=== PATIENT | male | born 1975 | race Caucasian/White ===

== ENCOUNTER 2020-10-30 15:54 | Emergency (ER) | payer OTHER ==
[2020-10-30 16:19] LABS: Absolute Neutrophil Ct (ANC) 7.06 (1.4-6.9); BASOPHIL % 0.2 % (0.0-0.4); Basophil (Absolute #) 0.02 (0-0.4); Eosinophil (Absolute #) 0.19 (0-0.5); Hematocrit 47.8 % (42-50); Hemoglobin 15.7 gm/dl (12.5-18.0); Lymphocyte (Absolute #) 1.56 (1.0-4.6); Lymphocytes % 16.3 % (24.0-44.0); Mean Corpuscular Hemoglobin 26.9 pg (26-32); Mean Corpuscular Hgb Concent. 32.8 g/dl (32-36); Mean Platelet Volume 9.8 fl (7.5-11.0); Monocyte (Absolute #) 0.77 (0.0-1.3); Neutrophil % 73.5 % (36.0-66.0); Platelet Count 242 K/mm3 (150-450); Red Blood Count 5.83 M/mm3 (4.1-5.6); Red Cell Distribution Width 13.4 % (11.5-14.0); White Blood Count 9.6 K/mm3 (4.0-10.5)
[2020-10-30 16:30] LABS: ALBUMIN 4.2 g/dL (3.5-5.0); ALKALINE PHOSPHATASE 129 U/L (38-126); ANION GAP 15.3 MEQ/L (5-15); BLOOD UREA NITROGEN 20 mg/dL (9-20); CHLORIDE 97 mmol/L (98-107); Calcium 9.5 mg/dL (8.4-10.2); Carbon Dioxide 23 mmol/L (22-30); Creatinine 1 1.09 mg/dL (0.66-1.25); EST GLOMERULAR FILTRATION RATE > 60.0 ML/MIN; Glucose 297 mg/dL (74-106); MAGNESIUM 1.8 mg/dL (1.6-2.3); Potassium 3.7 mmol/L (3.5-5.1); SGOT/AST 25 U/L (17-59); SGPT/ALT 26 U/L (0-50); SODIUM 131 mmol/L (137-145); Total Protein 7.6 g/dL (6.3-8.2)
--- NOTE | 2020-10-30 16:37 | XRAY ---
Indication: Chest and left arm pain. Short of breath. Comparison: None Portable apical lordotic chest demonstrates small patchy right suprahilar infiltrate versus atelectasis. Remaining heart, lungs, and bony thorax unremarkable.
--- NOTE | 2020-10-30 17:04 | ERPHSYRPT ---
- History of Present Illness Time Seen by Provider: 10/30/20 16:10 Historian: patient Exam Limitations: no limitations Patient Subjective Stated Complaint: chest pain Triage Nursing Assessment: pt to ED c/o CP and SOB x 3 days. states he has had an episode of this 3 weeks ago while shoveling snow. pt states he was working and exerting himself and pain came back. rates 10/10 at worst. pt denies pain currently because he is at rest. heart sounds clear, lungs clear and equal bilaterally. Physician History: Patient is a 45-year-old male presents to our emergency department with complaints of chest pain. Symptoms started approximately 3 weeks ago. Chest pain has been intermittent. Patient states pain occurs with exertion. Patient states the pain has been more constant over the past 3 days however continues to be exacerbated with exertion. Pain rated 10 out of 10. Pain tends to radiate to his left arm. No associated nausea vomiting or diaphoresis. Symptoms are mild to moderate in intensity. Symptoms are progressive. Patient voices no other complaints or concerns at this time. Patient voices he is a former smoker. Patient states "I smoked heavily for 10 years". Patient admits "I still chew". Timing/Duration: week(s) Activities at Onset: activity Quality: aching Location: substernal Chest Pain Radiation: arm Severity of Pain-Max: moderate Severity of Pain-Current: mild Modifying Factors: Improves With: rest Associated Symptoms: denies symptoms Nitro Today/Relief: no nitro taken today Aspirin Treatment Today: no aspirin today Allergies/Adverse Reactions: No Known Drug Allergies Allergy (Verified 10/30/20 20:23) Home Medications: No Reportable Medications [No Reported Medications] 10/30/20 [History] Hx Tetanus, Diphtheria Vaccination/Date Given: Yes Hx Influenza Vaccination/Date Given: No Hx Pneumococcal Vaccination/Date Given: No Travel Risk - International Travel Have you traveled outside of the country in past 3 weeks: No - Coronavirus Screening Are you exhibiting any of the following symptoms?: No Close contact with a COVID-19 positive Pt in past 14-21 Days: No - Review of Systems Constitutional: No Symptoms, No Fever, No Chills Eyes: No Symptoms Ears, Nose, & Throat: No Symptoms Respiratory: No Symptoms, No Cough, No Dyspnea Cardiac: No Symptoms, No Chest Pain, No Edema, No Syncope Abdominal/Gastrointestinal: No Symptoms, No Abdominal Pain, No Nausea, No Vomiting, No Diarrhea Genitourinary Symptoms: No Symptoms, No Dysuria Musculoskeletal: No Symptoms, No Back Pain, No Neck Pain Skin: No Symptoms, No Rash Neurological: No Symptoms, No Dizziness, No Focal Weakness, No Sensory Changes Psychological: No Symptoms Endocrine: No Symptoms Hematologic/Lymphatic: No Symptoms Immunological/Allergic: No Symptoms All Other Systems: Reviewed and Negative - Past Medical History Pertinent Past Medical History: Yes Cardiac History: Hypertension Respiratory History: COPD - Past Surgical History Past Surgical History: No - Social History Smoking Status: Former smoker Exposure to second hand smoke: No Drug Use: none Patient Lives Alone: No - Nursing Vital Signs Nursing Vital Signs: Initial Vital Signs Temperature 98.1 F 10/30/20 16:07 Pulse Rate 104 H 10/30/20 16:07 Respiratory Rate 20 10/30/20 16:07 Blood Pressure 188/122 10/30/20 16:07 O2 Sat by Pulse Oximetry 97 10/30/20 16:07 Pain Scale Pain Intensity 0 - Physical Exam General Appearance: no apparent distress, alert Eye Exam: PERRL/EOMI, eyes nml inspection Ears, Nose, Throat Exam: normal ENT inspection, moist mucous membranes Neck Exam: normal inspection, non-tender, supple, full range of motion Respiratory Exam: normal breath sounds, lungs clear, No respiratory distress Cardiovascular Exam: regular rate/rhythm, normal heart sounds Gastrointestinal/Abdomen Exam: soft, No tenderness, No mass Back Exam: normal inspection, No CVA tenderness, No vertebral tenderness Extremity Exam: normal inspection, normal range of motion Neurologic Exam: alert, oriented x 3, cooperative, normal mood/affect, sensation nml, No motor deficits Skin Exam: normal color, warm, dry Lymphatic Exam: No adenopathy SpO2 Interpretation: normal SpO2: 98 O2 Delivery: Room Air - Course Nursing assessment & vital signs reviewed: Yes EKG Interpreted by Me: RATE ([id number]), Sinus Tach, NORMAL AXIS, NORMAL INTERVALS (T wave inversions precordial leads V2 V3.) - Radiology Exams Chest X-ray Interpretation: Teleradiologist Report (Portable apical lordotic chest demonstrates small patchy right suprahilar infiltrate versus atelectasis. Remaining heart lungs and bony thorax unremarkable.) Ordered Tests: Active Orders 24 hr Category Date Time Status Prescription Benefit Specialist STAT Care 10/30/20 16:08 Active EKG-ER Only STAT Care 10/30/20 16:06 Active IV Insertion STAT Care 10/30/20 16:06 Active Pulse Oximetry (ED) STAT Care 10/30/20 16:06 Active CHEST 1 VIEW (PORTABLE) Stat Exams 10/30/20 16:08 Completed CBC W DIFF Stat Lab 10/30/20 16:17 Completed CMP Stat Lab 10/30/20 16:17 Completed D-DIMER QUANTITATIVE Stat Lab 10/30/20 16:17 Completed MAGNESIUM Stat Lab 10/30/20 16:17 Completed TROPONIN Q3H Lab 10/30/20 16:17 Completed TROPONIN Q3H Lab 10/30/20 19:30 Completed TROPONIN Q3H Lab 10/30/20 22:15 Ordered TROPONIN Q3H Lab 10/31/20 01:15 Ordered TROPONIN Q3H Lab 10/31/20 04:15 Ordered UA W/RFX UR CULTURE Stat Lab 10/30/20 17:27 Completed Urine Triage Profile Stat Lab 10/30/20 17:27 Completed Medication Summary Generic Name Dose Route Start Last Admin Trade Name Freq PRN Reason Stop Dose Admin Nitroglycerin/Dextrose 250 mls @ 1.5 mls/hr 10/30/20 20:08 10/30/20 20:17 Ntg 0.2mg/Ml In D5w Glass IV 11/29/20 20:07 3 mcg/min .Q24H PRN 0.9 mls/hr CHEST PAIN Administration Protocol 5 MCG/MIN Discontinued Medications Generic Name Dose Route Start Last Admin Trade Name Freq PRN Reason Stop Dose Admin Aspirin 324 mg 10/30/20 17:42 10/30/20 17:56 Baby Aspirin 81 Mg Chew PO 10/30/20 17:43 324 mg STAT ONE Administration Aspirin Confirm 10/30/20 17:54 Baby Aspirin 81 Mg Chew Administered 10/30/20 17:55 Dose 324 mg .ROUTE .STK-MED ONE Heparin Sodium (Beef Lung) Confirm 10/30/20 20:12 Heparin 5000 Units/0.5 Ml (High Risk Med) Administered 10/30/20 20:13 Dose 5,000 unit .ROUTE .STK-MED ONE Heparin Sodium/Dextrose Confirm 10/30/20 20:09 Heparin 25,000 Units/D5w 250ml Premix Administered 10/30/20 20:10 Dose 25,000 units in 250 mls @ ud IV .STK-MED ONE Nitroglycerin 1 gm 10/30/20 17:43 10/30/20 17:56 Nitro-Bid 2% Ud Packets TOP 10/30/20 17:44 1 gm STAT ONE Administration Nitroglycerin Confirm 10/30/20 17:54 Nitro-Bid 2% Ud Packets Administered 10/30/20 17:55 Dose 1 gm .ROUTE .STK-MED ONE Lab/Rad Data: Laboratory Result Diagrams 10/30/20 16:17 10/30/20 16:17 Laboratory Results 10/30/20 10/30/20 10/30/20 Range/Units 19:30 17:27 17:27 WBC (4.0-10.5) K/mm3 RBC (4.1-5.6) M/mm3 Hgb (12.5-18.0) gm/dl Hct (42-50) % MCV (78-100) fl MCH (26-32) pg MCHC (32-36) g/dl RDW (11.5-14.0) % Plt Count (150-450) K/mm3 MPV (7.5-11.0) fl Gran % (36.0-66.0) % Eos # (Auto) (0-0.5) Absolute Lymphs (auto) (1.0-4.6) Absolute Monos (auto) (0.0-1.3) Lymphocytes % (24.0-44.0) % Monocytes % (0.0-12.0) % Eosinophils % (0.00-5.0) % Basophils % (0.0-0.4) % Absolute Granulocytes (1.4-6.9) Basophils # (0-0.4) D-Dimer (215-500) ng/mL Sodium (137-145) mmol/L Potassium (3.5-5.1) mmol/L Chloride (98-107) mmol/L Carbon Dioxide (22-30) mmol/L Anion Gap (5-15) MEQ/L BUN (9-20) mg/dL Creatinine (0.66-1.25) mg/dL Estimated GFR ML/MIN Glucose (74-106) mg/dL Calcium (8.4-10.2) mg/dL Magnesium (1.6-2.3) mg/dL Total Bilirubin (0.2-1.3) mg/dL AST (17-59) U/L ALT (0-50) U/L Alkaline Phosphatase (38-126) U/L Troponin I 0.192 H* (0.000-0.034) ng/mL Serum Total Protein (6.3-8.2) g/dL Albumin (3.5-5.0) g/dL Urine Color STRAW (YELLOW) Urine Appearance CLEAR (CLEAR) Urine pH 5.0 (5-6) Ur Specific [place] 1.022 (1.005-1.025) Urine Protein NEGATIVE (Negative) Urine Ketones TRACE (NEGATIVE) Urine Blood NEGATIVE (0-5) Dilan/ul Urine Nitrite NEGATIVE (NEGATIVE) Urine Bilirubin NEGATIVE (NEGATIVE) Urine Urobilinogen NEGATIVE (0-1) mg/dL Ur Leukocyte Esterase NEGATIVE (NEGATIVE) Urine WBC (Auto) NONE (0-5) /HPF Urine RBC (Auto) NONE (0-2) /HPF U Epithel Cells (Auto) NONE (FEW) /HPF Urine Bacteria (Auto) NONE (NEGATIVE) /HPF Urine Culture Reflexed NO (NO) Urine Glucose >=500 (NEGATIVE) mg/dL Urine Opiates Level NEGATIVE (NEGATIVE) Ur Methadone NEGATIVE (NEGATIVE) Urine Barbiturates NEGATIVE (NEGATIVE) Ur Phencyclidine (PCP) NEGATIVE (NEGATIVE) Urine Amphetamine NEGATIVE (NEGATIVE) U Benzodiazepine Level NEGATIVE (NEGATIVE) Urine Cocaine NEGATIVE (NEGATIVE) Urine Marijuana (THC) NEGATIVE (NEGATIVE) 10/30/20 10/30/20 10/30/20 Range/Units 16:17 16:17 16:17 WBC (4.0-10.5) K/mm3 RBC (4.1-5.6) M/mm3 Hgb (12.5-18.0) gm/dl Hct (42-50) % MCV (78-100) fl MCH (26-32) pg MCHC (32-36) g/dl RDW (11.5-14.0) % Plt Count (150-450) K/mm3 MPV (7.5-11.0) fl Gran % (36.0-66.0) % Eos # (Auto) (0-0.5) Absolute Lymphs (auto) (1.0-4.6) Absolute Monos (auto) (0.0-1.3) Lymphocytes % (24.0-44.0) % Monocytes % (0.0-12.0) % Eosinophils % (0.00-5.0) % Basophils % (0.0-0.4) % Absolute Granulocytes (1.4-6.9) Basophils # (0-0.4) D-Dimer < 215 L (215-500) ng/mL Sodium 131 L (137-145) mmol/L Potassium 3.7 (3.5-5.1) mmol/L Chloride 97 L (98-107) mmol/L Carbon Dioxide 23 (22-30) mmol/L Anion Gap 15.3 H (5-15) MEQ/L BUN 20 (9-20) mg/dL Creatinine 1.09 (0.66-1.25) mg/dL Estimated GFR > 60.0 ML/MIN Glucose 297 H (74-106) mg/dL Calcium 9.5 (8.4-10.2) mg/dL Magnesium 1.8 (1.6-2.3) mg/dL Total Bilirubin 0.40 (0.2-1.3) mg/dL AST 25 (17-59) U/L ALT 26 (0-50) U/L Alkaline Phosphatase 129 H (38-126) U/L Troponin I 0.024 (0.000-0.034) ng/mL Serum Total Protein 7.6 (6.3-8.2) g/dL Albumin 4.2 (3.5-5.0) g/dL Urine Color (YELLOW) Urine Appearance (CLEAR) Urine pH (5-6) Ur Specific [place] (1.005-1.025) Urine Protein (Negative) Urine Ketones (NEGATIVE) Urine Blood (0-5) Dilan/ul Urine Nitrite (NEGATIVE) Urine Bilirubin (NEGATIVE) Urine Urobilinogen (0-1) mg/dL Ur Leukocyte Esterase (NEGATIVE) Urine WBC (Auto) (0-5) /HPF Urine RBC (Auto) (0-2) /HPF U Epithel Cells (Auto) (FEW) /HPF Urine Bacteria (Auto) (NEGATIVE) /HPF Urine Culture Reflexed (NO) Urine Glucose (NEGATIVE) mg/dL Urine Opiates Level (NEGATIVE) Ur Methadone (NEGATIVE) Urine Barbiturates (NEGATIVE) Ur Phencyclidine (PCP) (NEGATIVE) Urine Amphetamine (NEGATIVE) U Benzodiazepine Level (NEGATIVE) Urine Cocaine (NEGATIVE) Urine Marijuana (THC) (NEGATIVE) 10/30/20 Range/Units 16:17 WBC 9.6 (4.0-10.5) K/mm3 RBC 5.83 H (4.1-5.6) M/mm3 Hgb 15.7 (12.5-18.0) gm/dl Hct 47.8 (42-50) % MCV 82.0 (78-100) fl MCH 26.9 (26-32) pg MCHC 32.8 (32-36) g/dl RDW 13.4 (11.5-14.0) % Plt Count 242 (150-450) K/mm3 MPV 9.8 (7.5-11.0) fl Gran % 73.5 H (36.0-66.0) % Eos # (Auto) 0.19 (0-0.5) Absolute Lymphs (auto) 1.56 (1.0-4.6) Absolute Monos (auto) 0.77 (0.0-1.3) Lymphocytes % 16.3 L (24.0-44.0) % Monocytes % 8.0 (0.0-12.0) % Eosinophils % 2.0 (0.00-5.0) % Basophils % 0.2 (0.0-0.4) % Absolute Granulocytes 7.06 H (1.4-6.9) Basophils # 0.02 (0-0.4) D-Dimer (215-500) ng/mL Sodium (137-145) mmol/L Potassium (3.5-5.1) mmol/L Chloride (98-107) mmol/L Carbon Dioxide (22-30) mmol/L Anion Gap (5-15) MEQ/L BUN (9-20) mg/dL Creatinine (0.66-1.25) mg/dL Estimated GFR ML/MIN Glucose (74-106) mg/dL Calcium (8.4-10.2) mg/dL Magnesium (1.6-2.3) mg/dL Total Bilirubin (0.2-1.3) mg/dL AST (17-59) U/L ALT (0-50) U/L Alkaline Phosphatase (38-126) U/L Troponin I (0.000-0.034) ng/mL Serum Total Protein (6.3-8.2) g/dL Albumin (3.5-5.0) g/dL Urine Color (YELLOW) Urine Appearance (CLEAR) Urine pH (5-6) Ur Specific [place] (1.005-1.025) Urine Protein (Negative) Urine Ketones (NEGATIVE) Urine Blood (0-5) Dilan/ul Urine Nitrite (NEGATIVE) Urine Bilirubin (NEGATIVE) Urine Urobilinogen (0-1) mg/dL Ur Leukocyte Esterase (NEGATIVE) Urine WBC (Auto) (0-5) /HPF Urine RBC (Auto) (0-2) /HPF U Epithel Cells (Auto) (FEW) /HPF Urine Bacteria (Auto) (NEGATIVE) /HPF Urine Culture Reflexed (NO) Urine Glucose (NEGATIVE) mg/dL Urine Opiates Level (NEGATIVE) Ur Methadone (NEGATIVE) Urine Barbiturates (NEGATIVE) Ur Phencyclidine (PCP) (NEGATIVE) Urine Amphetamine (NEGATIVE) U Benzodiazepine Level (NEGATIVE) Urine Cocaine (NEGATIVE) Urine Marijuana (THC) (NEGATIVE) - Progress Progress: improved Air Movement: good Progress Note: 10/30/20 17:02 Chest x-ray reveals small patchy right suprahilar infiltrate versus atelectasis. This is likely not an infiltrate. Patient has no clinical signs of pneumonia. No objective findings to suggest pneumonia. No cough. No fever. No shortness of breath. Patient is not hypoxic. No tachypnea. D-dimer negative. Hyperglycemia at 297. 10/30/20 17:04 10/30/20 20:46 10/30/20 20:46 Initial troponin was 0.02 4 repeat as 0.192 heparin drip and nitro drip initiate d. No active chest pain at this time. Case discussed with Dr. Anyi joseph emergency physician at [facility]. Dr. Dougherty accepts transfer. Plan of care discussed with patient. He agrees to transfer to [facility] for further evaluation and treatment. Patient voices no other complaints or concerns at this time. 10/30/20 20:47 Blood Culture(s) Obtained: No Antibiotics given: No Counseled pt/family regarding: lab results, diagnosis, rad results - Departure Departure Disposition: Transfer Clinical Impression: ACS (acute coronary syndrome), Chest pain, Hyperglycemia, Hyponatremia, Hypertension, Non compliance w medication regimen, NSTEMI (non-ST elevated myocardial infarction), Stable angina Condition: Stable Critical Care Time: No Referrals: TREAMYNE ANDUJAR [Primary Care Provider] -
[2020-10-30] MEDS ORDERED: BABY ASPIRIN 81 MG CHEW PO ONE (17:42)
[2020-10-30] MEDS ORDERED: NITRO-BID 2% UD PACKETS TOP ONE (17:43)
[2020-10-30] MEDS ORDERED: NITRO-BID 2% UD PACKETS ONE (17:54)
[2020-10-30] MEDS ORDERED: BABY ASPIRIN 81 MG CHEW ONE (17:54)
[2020-10-30 17:57] LABS: Appearance CLEAR (CLEAR); Bilirubin NEGATIVE (NEGATIVE); Blood NEGATIVE Ery/ul (0-5); Glucose >=500 mg/dL (NEGATIVE); Ketones TRACE (NEGATIVE); Leukocyte Esterase NEGATIVE (NEGATIVE); Nitrite NEGATIVE (NEGATIVE); Protein,Urine Dip NEGATIVE (Negative); Specific Gravity 1.022 (1.005-1.025); Urobilinogen NEGATIVE mg/dL (0-1)
[2020-10-30 18:14] LABS: Amphetamine,Urine NEGATIVE (NEGATIVE); Barbiturate,Urine NEGATIVE (NEGATIVE); Benzodiazepine,Urine NEGATIVE (NEGATIVE); Cocaine,Urine NEGATIVE (NEGATIVE); Methadone,Urine NEGATIVE (NEGATIVE); Opiate,Urine NEGATIVE (NEGATIVE); PCP,Urine NEGATIVE (NEGATIVE); THC,Urine NEGATIVE (NEGATIVE)
[2020-10-30 20:07] VITALS: BP 135/92; PULSE 111
[2020-10-30] MEDS ORDERED: Ntg 0.2MG/Ml in D5W GLASS*** 250 ML IV PRN (20:08)
[2020-10-30] MEDS ORDERED: Heparin 25,000 units/D5W 250ML PREMIX 25,000 UNITS/250 ML BAG IV ONE (20:09)
[2020-10-30] MEDS ORDERED: Heparin 5000 UNITS/0.5 ML (HIGH RISK MED) ONE (20:12)
[2020-10-30] MEDS ORDERED: Ntg 0.2MG/Ml in D5W GLASS*** 250 ML IV ONE (20:16)
[2020-10-30 20:17] VITALS: O2SAT 98
== END 2020-10-30 20:50 | disposition short-term general hospital (02) ==
LOC: ED 15:54
DX: R07.9 Chest pain, unspecified (principal); I21.4 Non-ST elevation (NSTEMI) myocardial infarction; I24.9 Acute ischemic heart disease, unspecified; I10 Essential (primary) hypertension; R73.9 Hyperglycemia, unspecified; E87.1 Hypo-osmolality and hyponatremia; I20.8 Other forms of angina pectoris; Z91.14 Patient's other noncompliance with medication regimen
CPT/HCPCS: 36000; 36415; 71045; 80053; 80307; 81001; 83735; 84484; 85025; 85379; 93005; 93041; 94760; 99285; J1644; A9270-GY

== ENCOUNTER 2020-12-09 00:44 | Emergency (ER) | payer OTHER ==
[2020-12-09] MEDS ORDERED: Zofran 4 MG/2 ML VIAL IV ONE (01:12)
[2020-12-09] MEDS ORDERED: MORPHINE SULFATE 4 MG INJ IV ONE ×2 (01:12→05:11)
[2020-12-09] MEDS ORDERED: Zofran 4 MG/2 ML VIAL ONE (01:17)
[2020-12-09] MEDS ORDERED: MORPHINE SULFATE 4 MG INJ ONE ×2 (01:18→05:26)
--- NOTE | 2020-12-09 01:25 | ERPHSYRPT ---
- History of Present Illness Time Seen by Provider: 12/09/20 00:55 Historian: patient Exam Limitations: no limitations Patient Subjective Stated Complaint: pt states while sitting in his chair tonight he began having chest pain radiating to his lt shoulder and lt arm. rate 7/10 and describes and numbness and aching. pt had triple bypass on 11/05/2020 Triage Nursing Assessment: pt alert and oriented, answers questions approp. pt ambualtory with steady gait noted. respirations nonlabored with lungs cta. skin warm and dry. heart rate 94 on monitor, sinus rhythm. peripheral pulses intact Physician History: This is a 45-year-old white male who is diabetic, has hypertension and elevated cholesterol who presents with 1 hour history of left anterior chest pain with radiation to the left upper arm. This is different than the pain that he had when he had a myocardial infarction requiring a three-vessel CABG at [facility] approximately 1 month ago. Patient did take his Plavix and aspirin. He did not have any nitroglycerin to take. Patient does not recall the name of his founder and chief technical officer. Has not had fever cough, nausea or vomiting. He has no abdominal pain. Onset of pain began suddenly while he was sitting in his chair. He was not active at the time of its onset. Timing/Duration: today Activities at Onset: rest Quality: aching, tightness Location: other (Left anterior chest) Chest Pain Radiation: arm (Left) Severity of Pain-Max: moderate Severity of Pain-Current: mild Modifying Factors: Improves With: nothing Associated Symptoms: No nausea, No vomiting, No abdominal pain, No shortness of breath, No cough Prior Chest Pain/Cardiac Workup: angina, cardiac cath, heart attack Nitro Today/Relief: no nitro taken today Aspirin Treatment Today: 325 mg x 1, provided at home Allergies/Adverse Reactions: No Known Drug Allergies Allergy (Verified 12/09/20 01:03) Home Medications: Atorvastatin Calcium 80 mg PO DAILY 12/09/20 [History] Clopidogrel Bisulfate 75 mg [PLAVIX 75 MG Tablet] 75 mg PO DAILY 12/09/20 [History] Fluticasone Propion/Salmeterol [Fluticasone-Salmeterol 250-50] 1 each IH BID 12/09/20 [History] Metformin HCl [Metformin ER Gastric] 500 mg PO BID 12/09/20 [History] Metoprolol Tartrate 25 mg [Lopressor 25MG Tab] 25 mg PO BID 12/09/20 [History] Hx Tetanus, Diphtheria Vaccination/Date Given: Yes Hx Influenza Vaccination/Date Given: No Hx Pneumococcal Vaccination/Date Given: No Immunizations Up to Date: Yes Travel Risk - International Travel Have you traveled outside of the country in past 3 weeks: No - Coronavirus Screening Are you exhibiting any of the following symptoms?: No Close contact with a COVID-19 positive Pt in past 14-21 Days: No - Vaccine Status Have you recieved a Covid-19 vaccination: No - Review of Systems Constitutional: No Symptoms Eyes: No Symptoms Ears, Nose, & Throat: No Symptoms Respiratory: No Symptoms Cardiac: Chest Pain Abdominal/Gastrointestinal: No Symptoms Genitourinary Symptoms: No Symptoms Musculoskeletal: No Symptoms Skin: No Symptoms Neurological: No Symptoms Psychological: No Symptoms Endocrine: No Symptoms Hematologic/Lymphatic: No Symptoms Immunological/Allergic: No Symptoms All Other Systems: Reviewed and Negative - Past Medical History Pertinent Past Medical History: Yes Neurological History: No Pertinent History ENT History: No Pertinent History Cardiac History: No Pertinent History, Coronary Artery Disease, Hypertension Respiratory History: No Pertinent History, COPD Endocrine Medical History: Diabetes Type II Musculoskeletal History: No Pertinent History GI Medical History: No Pertinent History History: No Pertinent History Psycho-Social History: No Pertinent History Male Reproductive Disorders: No Pertinent History - Past Surgical History Past Surgical History: Yes Cardiac: CABG Other Surgical History: 3 vessel cabg - Social History Smoking Status: Former smoker Exposure to second hand smoke: No Drug Use: none Patient Lives Alone: No - Nursing Vital Signs Nursing Vital Signs: Initial Vital Signs Temperature 98.0 F 12/09/20 00:45 Pulse Rate 98 H 12/09/20 00:45 Respiratory Rate 16 12/09/20 00:45 Blood Pressure 164/101 12/09/20 00:45 O2 Sat by Pulse Oximetry 100 12/09/20 00:45 Pain Scale Pain Intensity 2 - Physical Exam General Appearance: no apparent distress, alert, anxiety Eye Exam: PERRL/EOMI, eyes nml inspection Ears, Nose, Throat Exam: normal ENT inspection, moist mucous membranes Neck Exam: normal inspection, non-tender, supple, full range of motion Respiratory Exam: normal breath sounds, chest tenderness, lungs clear, No respiratory distress, No airway intact Cardiovascular Exam: regular rate/rhythm, normal heart sounds, normal peripheral pulses Gastrointestinal/Abdomen Exam: soft, normal bowel sounds, No tenderness Rectal Exam: not done Back Exam: normal inspection, normal range of motion, No CVA tenderness, No vertebral tenderness Extremity Exam: normal inspection, normal range of motion, pelvis stable Neurologic Exam: alert, oriented x 3, cooperative, document management specialist II-XII nml as tested, normal mood/affect, nml cerebellar function, nml station & gait, sensation nml Skin Exam: normal color, warm, dry Lymphatic Exam: No adenopathy SpO2 Interpretation: normal SpO2: 100 O2 Delivery: Room Air - Course Nursing assessment & vital signs reviewed: Yes EKG Interpreted by Me: RATE ([id number]), Sinus Rhythm, NORMAL AXIS, NORMAL INTERVALS, NORMAL QRS, NORMAL ST-T, Other (There are no acute ischemic changes on this EKG. There are no changes from the comparison EKG dated 10/30/2020) Ordered Tests: Active Orders 24 hr Category Date Time Status Charging Manipulator STAT Care 12/09/20 01:13 Active EKG-ER Only STAT Care 12/09/20 01:12 Active IV Insertion STAT Care 12/09/20 01:12 Active Pulse Oximetry (ED) STAT Care 12/09/20 01:12 Active CHEST 1 VIEW (PORTABLE) Stat Exams 12/09/20 01:12 Taken CHEST WITH CONTRAST [CT] Stat Exams 12/09/20 02:11 Taken CBC W DIFF Stat Lab 12/09/20 01:28 Completed CMP Stat Lab 12/09/20 01:28 Completed D-DIMER QUANTITATIVE Stat Lab 12/09/20 01:28 Completed NT PRO BNP Stat Lab 12/09/20 01:28 Completed PROTIME WITH INR Stat Lab 12/09/20 01:28 Completed TROPONIN Q3H Lab 12/09/20 01:28 Completed TROPONIN Q3H Lab 12/09/20 04:10 Completed TROPONIN Q3H Lab 12/09/20 07:15 Ordered TROPONIN Q3H Lab 12/09/20 10:15 Ordered TROPONIN Q3H Lab 12/09/20 13:15 Ordered Medication Summary Generic Name Dose Route Start Last Admin Trade Name Freq PRN Reason Stop Dose Admin Morphine Sulfate 4 mg 12/09/20 05:11 Morphine Sulfate 4 Mg Inj IV 12/09/20 05:12 STAT ONE Nitroglycerin 0.4 mg 12/09/20 02:28 Nitrostat 0.4 Mg Tablet SL 01/08/21 02:27 PRN PRN CHEST PAIN Discontinued Medications Generic Name Dose Route Start Last Admin Trade Name Mariely PRN Reason Stop Dose Admin Sodium Chloride 1,000 mls @ 999 mls/hr 12/09/20 02:12 12/09/20 02:15 Sodium Chloride 0.9% 1000 Ml IV 12/09/20 03:12 999 mls/hr .Q1H1M STA Administration Sodium Chloride Confirm 12/09/20 02:14 Sodium Chloride 0.9% 1000 Ml Administered 12/09/20 02:15 Dose 1,000 mls @ ud .ROUTE .STK-MED ONE Morphine Sulfate 4 mg 12/09/20 01:12 12/09/20 01:21 Morphine Sulfate 4 Mg Inj IV 12/09/20 01:13 4 mg STAT ONE Administration Morphine Sulfate Confirm 12/09/20 01:18 Morphine Sulfate 4 Mg Inj Administered 12/09/20 01:19 Dose 4 mg .ROUTE .STK-MED ONE Ondansetron HCl 4 mg 12/09/20 01:12 12/09/20 01:21 Zofran 4 Mg/2 Ml Vial IV 12/09/20 01:13 4 mg STAT ONE Administration Ondansetron HCl Confirm 12/09/20 01:17 Zofran 4 Mg/2 Ml Vial Administered 12/09/20 01:18 Dose 4 mg .ROUTE .STK-MED ONE Lab/Rad Data: Laboratory Result Diagrams 12/09/20 01:28 12/09/20 01:28 Laboratory Results 12/09/20 12/09/20 12/09/20 Range/Units 04:10 01:28 01:28 WBC (4.0-10.5) K/mm3 RBC (4.1-5.6) M/mm3 Hgb (12.5-18.0) gm/dl Hct (42-50) % MCV (78-100) fl MCH (26-32) pg MCHC (32-36) g/dl RDW (11.5-14.0) % Plt Count (150-450) K/mm3 MPV (7.5-11.0) fl Gran % (36.0-66.0) % Eos # (Auto) (0-0.5) Absolute Lymphs (auto) (1.0-4.6) Absolute Monos (auto) (0.0-1.3) Lymphocytes % (24.0-44.0) % Monocytes % (0.0-12.0) % Eosinophils % (0.00-5.0) % Basophils % (0.0-0.4) % Absolute Granulocytes (1.4-6.9) Basophils # (0-0.4) PT 10.8 (8.83-12.87) SECONDS INR 0.96 (0.8-3.0) D-Dimer 760 H* (215-500) ng/mL Sodium (137-145) mmol/L Potassium (3.5-5.1) mmol/L Chloride (98-107) mmol/L Carbon Dioxide (22-30) mmol/L Anion Gap (5-15) MEQ/L BUN (9-20) mg/dL Creatinine (0.66-1.25) mg/dL Estimated GFR ML/MIN Glucose (74-106) mg/dL Calcium (8.4-10.2) mg/dL Total Bilirubin (0.2-1.3) mg/dL AST (17-59) U/L ALT (0-50) U/L Alkaline Phosphatase (38-126) U/L Troponin I < 0.012 < 0.012 (0.000-0.034) ng/mL NT-Pro-B Natriuret Pep (0-450) pg/mL Serum Total Protein (6.3-8.2) g/dL Albumin (3.5-5.0) g/dL 12/09/20 12/09/20 Range/Units 01:28 01:28 WBC 8.2 (4.0-10.5) K/mm3 RBC 5.16 (4.1-5.6) M/mm3 Hgb 13.8 (12.5-18.0) gm/dl Hct 43.7 (42-50) % MCV 84.7 (78-100) fl MCH 26.7 (26-32) pg MCHC 31.6 L (32-36) g/dl RDW 14.4 H (11.5-14.0) % Plt Count 261 (150-450) K/mm3 MPV 10.1 (7.5-11.0) fl Gran % 54.1 (36.0-66.0) % Eos # (Auto) 0.56 H (0-0.5) Absolute Lymphs (auto) 2.12 (1.0-4.6) Absolute Monos (auto) 1.05 (0.0-1.3) Lymphocytes % 25.9 (24.0-44.0) % Monocytes % 12.8 H (0.0-12.0) % Eosinophils % 6.8 H (0.00-5.0) % Basophils % 0.4 (0.0-0.4) % Absolute Granulocytes 4.42 (1.4-6.9) Basophils # 0.03 (0-0.4) PT (8.83-12.87) SECONDS INR (0.8-3.0) D-Dimer (215-500) ng/mL Sodium 140 (137-145) mmol/L Potassium 3.6 (3.5-5.1) mmol/L Chloride 103 (98-107) mmol/L Carbon Dioxide 28 (22-30) mmol/L Anion Gap 12.8 (5-15) MEQ/L BUN 11 (9-20) mg/dL Creatinine 0.88 (0.66-1.25) mg/dL Estimated GFR > 60.0 ML/MIN Glucose 152 H (74-106) mg/dL Calcium 9.5 (8.4-10.2) mg/dL Total Bilirubin 0.40 (0.2-1.3) mg/dL AST 26 (17-59) U/L ALT 23 (0-50) U/L Alkaline Phosphatase 151 H (38-126) U/L Troponin I (0.000-0.034) ng/mL NT-Pro-B Natriuret Pep 160 (0-450) pg/mL Serum Total Protein 7.7 (6.3-8.2) g/dL Albumin 4.2 (3.5-5.0) g/dL - Progress Progress: improved Air Movement: good Progress Note: 12/09/20 01:42 Chest x-ray shows no acute cardiopulmonary process 12/09/20 02:29 Clinically, patient states that his chest pain is gone but he still has some mild pain in his left upper extremity. 12/09/20 05:12 CAT scan of the chest with contrast shows no definite pulmonary emboli present. There is no evidence of any acute cardiopulmonary process 12/09/20 05:15 Clinically, the patient states his chest pain is gone as is his pain in the left upper extremity. The patient is not short of breath. His vital signs are stable. His 0-hour and 3-hour troponins are less then 0.012 which is normal. His CAT scan of his chest does not show any pulmonary emboli. There is no evidence of pneumonia. Patient desires to be discharged to home. I think this is appropriate. 12/09/20 05:16 Blood Culture(s) Obtained: No Antibiotics given: No Counseled pt/family regarding: lab results, diagnosis, rad results - Departure Departure Disposition: Home Clinical Impression: Chest pain Condition: Stable Critical Care Time: No Referrals: TREMAYNE ANDUJAR [Primary Care Provider] - Additional Instructions: Take all your medication as prescribed. Follow-up with your founder and chief technical officer and primary care physician for further management on Friday, December 11. Return to the emergency department if your symptoms recur.
[2020-12-09 01:31] LABS: Absolute Neutrophil Ct (ANC) 4.42 (1.4-6.9); BASOPHIL % 0.4 % (0.0-0.4); Basophil (Absolute #) 0.03 (0-0.4); Eosinophil % 6.8 % (0.00-5.0); Eosinophil (Absolute #) 0.56 (0-0.5); Hematocrit 43.7 % (42-50); Hemoglobin 13.8 gm/dl (12.5-18.0); Lymphocyte (Absolute #) 2.12 (1.0-4.6); Lymphocytes % 25.9 % (24.0-44.0); Mean Cell Volume 84.7 fl (78-100); Mean Corpuscular Hemoglobin 26.7 pg (26-32); Mean Corpuscular Hgb Concent. 31.6 g/dl (32-36); Mean Platelet Volume 10.1 fl (7.5-11.0); Monocyte (Absolute #) 1.05 (0.0-1.3); Monocytes % 12.8 % (0.0-12.0); Neutrophil % 54.1 % (36.0-66.0); Platelet Count 261 K/mm3 (150-450); Red Blood Count 5.16 M/mm3 (4.1-5.6); Red Cell Distribution Width 14.4 % (11.5-14.0); White Blood Count 8.2 K/mm3 (4.0-10.5)
[2020-12-09 01:37] LABS: INR 0.96 (0.8-3.0); PROTIME 10.8 SECONDS (8.83-12.87)
[2020-12-09 01:52] LABS: ALBUMIN 4.2 g/dL (3.5-5.0); ALKALINE PHOSPHATASE 151 U/L (38-126); ANION GAP 12.8 MEQ/L (5-15); BLOOD UREA NITROGEN 11 mg/dL (9-20); CHLORIDE 103 mmol/L (98-107); Calcium 9.5 mg/dL (8.4-10.2); Carbon Dioxide 28 mmol/L (22-30); Creatinine 1 0.88 mg/dL (0.66-1.25); EST GLOMERULAR FILTRATION RATE > 60.0 ML/MIN; Glucose 152 mg/dL (74-106); NT PRO BNP 160 pg/mL (0-450); Potassium 3.6 mmol/L (3.5-5.1); SGOT/AST 26 U/L (17-59); SGPT/ALT 23 U/L (0-50); SODIUM 140 mmol/L (137-145); Total Protein 7.7 g/dL (6.3-8.2)
[2020-12-09] MEDS ORDERED: Sodium Chloride 0.9% 1000 ML 1,000 ML IV STA (02:12)
[2020-12-09] MEDS ORDERED: Sodium Chloride 0.9% 1000 ML 1,000 ML ONE (02:14)
[2020-12-09] MEDS ORDERED: Nitrostat 0.4 MG Tablet SL PRN (02:28)
[2020-12-09 06:21] VITALS: BP 128/95; PULSE 96; O2SAT 98
--- NOTE | 2020-12-09 08:06 | XRAY ---
Indication: Short of breath. Chest and left arm pain. Elevated d-dimer. Multiple contiguous axial images obtained through the chest using 80 cc Isovue 370 contrast and PE protocol. Comparison: None There is good opacification of the pulmonary arteries to include the lobar and segmental branches. No pulmonary embolus. Heart is not enlarged. Aorta is normal in course and caliber. No pathologic mediastinal/hilar lymphadenopathy. Lungs are inflated with right upper lobe minimal fibrosis/scarring and 4 mm noncalcified nodule. No suspicious pulmonary mass, infiltrate, or effusion. Bony thorax intact with minimal degenerative changes throughout the spine and sternotomy wires. Limited upper abdomen demonstrates fatty liver. Impression: 1. Negative pulmonary embolus. No acute cardiopulmonary abnormalities. 2. Right upper lobe noncalcified micronodule probably granulomatous in this demographic. 3. Fatty liver. Comment: Preliminary interpretation was made by [facility]. No critical discrepancy.
--- NOTE | 2020-12-09 08:09 | XRAY ---
Indication: Left chest/arm pain. Comparison: October 30, 2020. Portable chest remains clear. Heart is not enlarged with interval CABG surgery. Bony thorax intact. No acute cardiopulmonary abnormalities.
== END 2020-12-09 06:15 | disposition short-term general hospital (02) ==
LOC: ED 00:44
DX: R07.89 Other chest pain (principal); E11.9 Type 2 diabetes mellitus without complications; E78.00 Pure hypercholesterolemia, unspecified; Z95.1 Presence of aortocoronary bypass graft; Z79.899 Other long term (current) drug therapy; Z79.01 Long term (current) use of anticoagulants; I25.10 Atherosclerotic heart disease of native coronary artery without angina pectoris; I10 Essential (primary) hypertension
CPT/HCPCS: 36000; 36415; 71045; 71260; 80053; 83880; 84484; 85025; 85379; 85610; 93005; 93041; 94760; 96374; 96375; 96376; 99285; J2270; J2405